=== PATIENT | female | born 1965 | race Caucasian/White ===

== ENCOUNTER → 2022-10-18 14:19 | Outpatient (CLI) | payer BC, SELFPAY ==
--- NOTE | ~2022-10-18 | MMUS_ITS ---
EXAMINATION: MM diagnostic lamin BI w omar, US breast RT limited HISTORY: Palpable lump in the upper outer quadrant of the right breast TECHNIQUE: Craniocaudal, mediolateral, and mediolateral oblique 3-D tomosynthesis images of the kelvin ts were performed and synthetic 2-D images were generated. CAD analysis was submitted and interpreted . High resolution limited right breast ultrasound was performed. COMPARISON: 08/28/2014, 12/18/2013, 12/13/2013 BREAST PARENCHYMAL COMPOSITION: There are scattered areas of fibroglandular density. FINDINGS: MAMMOGRAPHIC FINDINGS: No suspicious mass, calcification, or architectural distortion are identified in either breast to sug gest malignancy. There has been no suspicious interval change. No suspicious mammographic correlate i s identified for the reported palpable abnormality of concern in the right breast. ULTRASOUND: No suspicious cystic or solid mass is identified to correlate with the reported palpable abnormality of the right breast. A benign-appearing right axillary lymph node is noted. IMPRESSION: 1. No specific mammographic or sonographic correlate is identified for the reported palpable abnormal ity of concern in the right breast. Further evaluation at this time should be based on clinical asses sment. Continued follow-up physical examination is recommended. 2. Recommend routine screening mammography in one year. BI-RADS Category 1: Negative Reviewed, dictated and finalized at location [facility]. R SERVER IMPRESSION: 1. No specific mammographic or sonographic correlate is identified for the repo rted palpable abnormality of concern in the right breast. Further evaluation at this time should be based on clinical assessment. Continued follow-up physical examination is recommended. 2. Recommend routine screening mammography in one year. BI-RADS Category 1: Negative
== END ==
PROVIDERS: PCP Physician Assistant; Visit Provider Family Medicine
DX: N63.31 Unspecified lump in axillary tail of the right breast (principal)
CPT/HCPCS: 76642; 77062; 77066; G0279

== ENCOUNTER → 2022-11-29 15:40 | Outpatient (CLI) | payer BC, SELFPAY ==
--- NOTE | ~2022-11-29 | MR_ITS ---
MRI of the cervical spine Clinical History: Radiculopathy Technique: Axial T2-weighted and gradient images, and sagittal T1-weighted, T2-weighted, and STIR jessica ges were acquired. Findings: No fracture or subluxation identified in the cervical spine. Vertebral bodies maintain norm al height and alignment. No focal bone marrow signal abnormality seen. At C2-C3, C3-C4, and C4-C5, there is no significant disc bulge or herniation. No spinal canal stenosi s, cord compression, or neural foraminal narrowing at these levels. At C5-C6, there is mild disc osteophyte complex, which minimally flattens the ventral cord. Bilateral neural foramina are preserved. At C6-C7, there is disc ossify complex which minimally effaces the ventral thecal sac. No zaira cord compression. Probable mild left neural foraminal narrowing. Right neural foramen preserved. No abnormal signal in the spinal cord. Paravertebral soft tissues are unremarkable. Impression: Mild disc osteophyte complexes at C5-C6 and C6-C7, as detailed above. Minimal flattening of the ventr al cord at C5-C6. Probable mild left neural foraminal narrowing at C6-C7. Reviewed, dictated and finalized at [facility]. O MANAGER Impression: Mild disc osteophyte complexes at C5-C6 and C6-C7, as detailed above. Minimal f lattening of the ventral cord at C5-C6. Probable mild left neural foraminal garcia rowing at C6-C7.
== END ==
PROVIDERS: PCP Physician Assistant; Visit Provider Nurse Practitioner Family
DX: M54.12 Radiculopathy, cervical region (principal); M25.78 Osteophyte, vertebrae
CPT/HCPCS: 72141

== ENCOUNTER 2023-08-29 01:24 | Day surgery (SDC) | payer BC, SELFPAY ==
[2023-08-22 13:42] VITALS: BMI 26.7
[2023-08-29 13:28] VITALS: BP 110/57; PULSE 71; RESP 16; TEMP 36.2; O2SAT 97
[2023-08-29] MEDS: LACTATED RINGERS 1,000 ML 150 ML IV CONT (13:38)
--- NOTE | 2023-08-29 13:39 | WPDANESEPPF ---
Anes - Initial Pre Proc Eval Procedure: Operation Date: 08/29/23 14:30 Proposed Procedures p Esophagogastroduodenoscopy - Aly Gonsalez MD Date/Time: 08/29/23 13:39 Surgeon: Aly Gonsalez MD Pre Op Diagnosis: dysphagia Patient Data Age: 58 Gender: F Height: 1.65 m Weight: 74.8 kg Last Vital Signs Temp 97.1 F L 08/29/23 13:28 Pulse 71 08/29/23 13:28 Resp 16 08/29/23 13:28 BP 110/57 L 08/29/23 13:28 Pulse Ox 97 08/29/23 13:28 O2 Del Method Room Air 08/29/23 13:28 Allergies Allergy/AdvReac Type Severity Reaction Status Date / Time codeine Allergy Unknown Unknown Verified 08/29/23 13:26 Home Medications Medication Instructions Recorded Confirmed Type No Home Medications 08/22/23 08/29/23 History Patient hx anesthesia problems: none Family hx anesthesia problems: none Results Review: All pre-operative results and documents have been reviewed as part of the pre-operative evaluation. [facility] Past Medical History Medical History Esophageal erosions Essential (primary) hypertension Insomnia Surgical History Surgical History History of cholecystectomy 1984 History of esophagogastroduodenoscopy (EGD) History of hernia repair X2 2008 History of hysterectomy 2009 History of partial hysterectomy 2004 Family History Family History (Updated 08/01/23 @ 12:32 by JOSUE Wheatley) Father Heart disease Hypertension Mother Lung cancer metastasized to brain and liver Grandparent Breast cancer Carcinoma of colon Diabetes mellitus Social History Social History Smoking packs per day: 1 Smoking cigarettes per day: 20.0 Years smoked: 8 Smoking pack-years: 8.00 Smoking status: Former smoker Tobacco type: cigarettes Second hand tobacco smoke exposure: No Alcohol intake: never Substance use: never Substance use type: does not use Lack of Transportation: No Lack of Food: Never True Current Housing: I Have Housing Concerned About Future Housing: No Difficulty Paying Gas/Electric Bills: No Difficulty Paying for Meds: No Currently Unemployed: No Education: Associate Degree Difficulty w/ Childcare or Family Care: No Living arrangements: with family Occupation/Education: occupation Additional occupation/education comments: Teacher Gender identity (if verbalized by the patient): Female Spiritual care concerns: No Anes - Eval Final PreProcedure Day of Procedure 08/29/23 13:39 Patient weight: normal Heart: regular rate and rhythm Lungs: clear to auscultation Airway: Mallampati scale class II Neurological: alert and oriented Last oral intake: >/= 8 hours ASA classification: II Emergent: no Anesthetic plan: proceed Anesthesia type and monitoring: general GIVS and standard monitoring Results Review: All pre-operative results and documents have been reviewed as part of the pre-operative evaluation. Informed Consent: The patient's anesthetic plan and its attendant risks and benefits were discussed with the patient/family/POA. Questions were solicited and answers provided to the satisfaction of the patient/family/POA.
[2023-08-29] MEDS: ONDANSETRON INJ 4 MG/2 ML VIAL IV PUSH (13:52)
--- NOTE | 2023-08-29 14:08 | PM.HPGS ---
History of Present Illness History of Present Illness Consent: Risks, benefits, and alternatives have been discussed and questions answered. Patient agrees to proceed with procedure. Chief complaint: dysphagia Narrative: Shelby Perdomo is a 58 year old female Presents for EGD. Patient has a previous EGD that showed distal esophageal web in 2012. Patient reports over recent years has had difficulty swallowing. Food will catch the mid substernal portion the chest. She will regurgitate food until this is relieved. Patient is this occurs intermittently. May happen as often as once a month. She denies any heartburn or pain. She does not take medications at present. She denies any weight loss or bleeding. Patient presents today for endoscopy to evaluate dysphagia. Review of Systems Review of Systems: Review of systems noncontributory. [facility] Past Medical History Medical History Esophageal erosions Essential (primary) hypertension Insomnia Surgical History Surgical History History of cholecystectomy 1984 History of esophagogastroduodenoscopy (EGD) History of hernia repair X2 2008 History of hysterectomy 2009 History of partial hysterectomy 2005 Family History Family History (Updated 08/01/23 @ 12:32 by JOSUE Wheatley) Father Heart disease Hypertension Mother Lung cancer metastasized to brain and liver Grandparent Breast cancer Carcinoma of colon Diabetes mellitus Social History Social History Smoking packs per day: 1 Smoking cigarettes per day: 20.0 Years smoked: 8 Smoking pack-years: 8.00 Smoking status: Former smoker Tobacco type: cigarettes Second hand tobacco smoke exposure: No Alcohol intake: never Substance use: never Substance use type: does not use Lack of Transportation: No Lack of Food: Never True Current Housing: I Have Housing Concerned About Future Housing: No Difficulty Paying Gas/Electric Bills: No Difficulty Paying for Meds: No Currently Unemployed: No Education: Associate Degree Difficulty w/ Childcare or Family Care: No Living arrangements: with family Occupation/Education: occupation Additional occupation/education comments: Teacher Gender identity (if verbalized by the patient): Female Spiritual care concerns: No Meds Home Medications and Allergies Home Medications Medication Instructions Recorded Confirmed Type No Home Medications 08/22/23 08/29/23 History Allergies Allergy/AdvReac Type Severity Reaction Status Date / Time codeine Allergy Unknown Unknown Verified 08/29/23 13:26 Vital Signs Vital Signs - 24 hr 08/29/23 13:28 Temperature 97.1 F L Pulse Rate 71 Respiratory Rate 16 Blood Pressure 110/57 L Pulse Oximetry 97 Oxygen Delivery Room Air Exam Narrative: Physical exam reveals patient to be alert. Vital signs stable. HEENT exam is unremarkable. Patient is anicteric. Lungs are clear to auscultation and percussion. Heart is without murmur or extra sounds. Abdomen bowel sounds are present soft nontender with no organomegaly. Digital external rectal exam normal. Assessment and Plan Assessment and plan (1) Dysphagia: Code(s): R13.10 - Dysphagia, unspecified Status: Acute Assessment and Plan: Patient complains of intermittent dysphagia to solid foods for many years. She does have a distant history of esophageal web suggesting this is likely recurred. Plan for EGD to assess more thoroughly. Often this is on the basis of underlying acid reflux. Long-term PPI use may be consider. Further recommendations may be given after endoscopy.
[2023-08-29 14:32] VITALS: BP 115/62; PULSE 80; RESP 14; O2SAT 96
[2023-08-29 14:42] VITALS: BP 136/62; PULSE 61; RESP 22; O2SAT 97
[2023-08-29 14:52] VITALS: BP 117/59; PULSE 60; RESP 22; O2SAT 100
== END 2023-08-29 14:55 | disposition home or self-care (01) ==
PROVIDERS: PCP Physician Assistant; Visit Provider Internal Medicine Gastroenterology
PROC: 0DJ08ZZ Inspection of Upper Intestinal Tract, Via Natural or Artificial Opening Endoscopic (ICD-10-PCS; CPT 43235; principal; 2023-08-29 14:30)
DX: K20.0 Eosinophilic esophagitis (principal); Q39.4 Esophageal web; Z87.891 Personal history of nicotine dependence
CPT/HCPCS: 43450; 43239; 88305; J2405; J2704; J7120